=== PATIENT | male | born 2000 | race Caucasian/White ===

== ENCOUNTER 2023-12-14 17:57 | Emergency (ER) | payer OTHER ==
[~2023-12-14] VITALS: Ht 191.8 cm; Wt 103.7 kg
[2023-12-14] MEDS ORDERED: TETanus/Pertussis (Acell)/Diphther VAC/PF (Tdap-Adult) 0.5ml syringe IMVAC ONE (18:30)
[2023-12-14 19:17] VITALS: BP 138/84; PULSE 82; RESP 18; TEMP 98.4; O2SAT 99
== END 2023-12-14 19:19 | disposition home or self-care (01) ==
LOC: ER 18:02
DX: T23.162A Burn of first degree of back of left hand, initial encounter (principal); T23.132A Burn of first degree of multiple left fingers (nail), not including thumb, initial encounter; Z23 Encounter for immunization; W40.1XXA Explosion of explosive gases, initial encounter; Y93.89 Activity, other specified; Y92.89 Other specified places as the place of occurrence of the external cause; Y99.8 Other external cause status
CPT/HCPCS: 90471; 90715; 99283

== ENCOUNTER 2025-07-12 18:36 | Emergency (ER) | payer MEDICAID, OTHER ==
[~2025-07-12] VITALS: Ht 193 cm; Wt 87.4 kg
[2025-07-12 18:48] VITALS: BP 167/100; PULSE 104; RESP 15; O2SAT 98
--- NOTE | 2025-07-12 18:55 | Physician Documentation ---
History of Present Illness ~ Chief Complaint: Rectal Bleeding Stated Complaint: BLOODY STOOL Time Seen by MD: 20:28 Primary Medical Doctor: NONE HPI Patient is a 25-year-old male that reports rectal bleeding times 1-1/2 months. Patient reports that the blood appears dark in the toilet and when he wipes. He denies any trauma to the rectum any history of ulcers or hemorrhoids. No other significant past medical history. Medication Reconciliation Allergies: Coded Allergies: No Known Allergies (Unverified , 12/14/23) Review of Systems ROS As stated above in the HPI, otherwise all systems are reviewed and negative. Physical Exam Vital Signs: Temperature: 96.8, Source: Temporal, Heart Rate: 104, Respiratory Rate: 15, BP: 167/100, Pulse Oximetry: 98, Weight: 87.400 Physical Exam VITALS: Reviewed and as above. GENERAL: Alert, no apparent distress. HEENT: Normocephalic, atraumatic, PERRL, EOMI, dry mucosa, no erythema RESPIRATORY: Lungs clear, normal breath sounds, no respiratory distress. CHEST: No accessory muscle use, no retractions CV: Regular rate, rhythm, no edema, no murmur, No: JVD GI: Soft, non-tender, bowels sounds present, no rebound, guarding, or rigidity, rectal exam completed no visible blood at anus BACK: No CVA tenderness, or swelling MUSCULOSKELETAL No deformities, no edema SKIN: Warm and dry, no rash NEURO: Oriented x4, No motor or sensory deficit PSYCH: Normal mood and affect, no agitation Progress Results/Orders Results/Orders Vital Signs 07/12/25 18:48 Temp 96.8 Pulse 104 Resp 15 B/P (MAP) 167/100 Pulse Ox 98 Laboratory Tests Test 07/12/25 19:06 White Blood Count 8.3 Red Blood Count 5.27 Hemoglobin 15.3 Hematocrit 45.0 Mean Corpuscular Volume 85.4 Mean Corpuscular Hemoglobin 29.0 Mean Corpuscular Hemoglobin Concent 33.9 Red Cell Distribution Width 13.4 Platelet Count 229 Mean Platelet Volume 8.7 Neutrophils (%) (Auto) 67.8 Lymphocytes (%) (Auto) 23.7 Monocytes (%) (Auto) 7.1 Eosinophils (%) (Auto) 1.0 Basophils (%) (Auto) 0.4 Neutrophils # (Auto) 5.6 Lymphocytes # (Auto) 2.0 Monocytes # (Auto) 0.6 Eosinophils # (Auto) 0.1 Basophils # (Auto) 0.0 CBC Comment Sodium Level 142 Potassium Level 3.8 Chloride Level 105 Carbon Dioxide Level 26.1 Anion Gap 11 Blood Urea Nitrogen 15 Creatinine 1.01 Estimated GFR/1.73 m2 > 90 BUN/Creatinine Ratio 14.9 Glucose Level 126 H Calcium Level 9.2 Total Bilirubin 0.3 Aspartate Amino Transf (AST/SGOT) 19 Alanine Aminotransferase (ALT/SGPT) 47 Alkaline Phosphatase 76 Total Protein 9.1 H Albumin 4.6 Globulin 4.5 H Albumin/Globulin Ratio 1.0 L Lipase 23 Chemistry Comments Medical Decision Making Findings This patient has a presentation consistent with rectal bleeding, most likely due to internal hemorrhoids, all the laboratory diagnostics are normal and Hemoccult is negative at this time. Low suspicion for inflammatory bowel disorder, rectal ulcer (HIV, syphilis, STI) or rectal foreign body. Presentation not consistent with other acute, emergent causes of upper or lower GI bleeding. No evidence of hemorrhagic shock. 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 Patient will return to the emergency department if any worsening of his current symptoms or any additional concerning symptoms i.e. increased bleeding lightheaded dizziness abdominal pain or any other concerning symptoms present. Diff Dx GI Bleed:Consideration: Include: AE fistula, Angiodysplasia, Bleeding diathesis, Blood loss anemia, Carcinoma, Diverticulosis, Diverticulitis, Esophageal varicies, Esophagitis, Gastritis, Gastroenteritis, Inflammatory BD, Willa-Campbell syndrome, Meckel's diverticulum, PUD, Other Departure Disposition: HOME / SELF CARE / HOMELESS Impression: Primary Impression: Rectal bleed Additional Impression: Internal hemorrhoid Condition: Stable Discharge Instructions: Hemorrhoids, Rectal Bleeding Additional Instructions: This patient has a presentation consistent with rectal bleeding, most likely due to internal hemorrhoids, all the laboratory diagnostics are normal and Hemoccult is negative at this time. Low suspicion for inflammatory bowel disorder, rectal ulcer (HIV, syphilis, STI) or rectal foreign body. Presentation not consistent with other acute, emergent causes of upper or lower GI bleeding. No evidence of hemorrhagic shock. 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 Patient will return to the emergency department if any worsening of his current symptoms or any additional concerning symptoms i.e. increased bleeding lightheaded dizziness abdominal pain or any other concerning symptoms present. Please in crease your fluid intake, MiraLax 17 g daily to help soften stool. Please follow up with her primary care provider. Referrals: NO PRIMARY CARE PROVIDER (PCP) Education Educated: Patient Educated regarding: diagnosis, treatment, need for follow up Signature Scribe Signature: A Attestation: Scribed for Stephany Packer by KENA Luque . 07/12/25 22:55 STEPHANY PACKER Jul 12, 2025 18:55
[2025-07-12 19:24] LABS: MEAN PLATELET VOLUME 8.7 FL (7.4-10.4); RED CELL DISTRIBUTION WIDTH 13.4 % (11.5-14.5)
[2025-07-12 19:34] LABS: CREATININE 1.01 MG/DL (0.60-1.10); TOTAL CARBON DIOXIDE 26.1 MMOL/L (24-32); eCRCL 138 ML/MIN; eGFR > 90 ML/MIN
[2025-07-12 23:00] VITALS: TEMP 96.8
== END 2025-07-12 23:05 | disposition home or self-care (01) ==
LOC: ER 18:36
DX: K92.1 Melena (principal); K64.8 Other hemorrhoids
CPT/HCPCS: 36415; 80053; 83690; 85025; 99283